=== PATIENT | male | born 1985 | race Caucasian/White ===

== ENCOUNTER 2018-07-10 13:41 | Emergency (ER) | payer SELFPAY, OTHER ==
[2018-07-10 14:44] LABS: ADD MAN DIFF? NO
[2018-07-10 14:47] LABS: BASO % 0 % (0-3); EOS # 0.1 x10^3/uL (0.0-0.7); EOS % 1 % (0-3); HEMATOCRIT 41.4 % (39.0-53.0); HEMOGLOBIN 14.5 g/dL (13.0-17.5); LYMPH # 0.9 x10^3/uL (1.0-4.8); LYMPH % 10 % (24-48); MEAN CORPUSCULAR HEMOGLOBIN 33 pg (25-35); MEAN CORPUSCULAR HGB CONC 35 g/dL (31-37); MEAN CORPUSCULAR VOLUME 94 fL (79-100); MONO # 0.8 x10^3/uL (0.0-1.1); MONO % 8 % (0-9); NEUT # 7.9 x10^3uL (1.8-7.7); NEUT % 81 % (31-73); PLATELET COUNT 246 x10^3/uL (140-400); RED BLOOD COUNT 4.38 x10^6/uL (4.30-5.70); RED CELL DISTRIBUTION WIDTH 12.6 % (11.5-14.5); WHITE BLOOD COUNT 9.7 x10^3/uL (4.0-11.0)
[2018-07-10 15:03] LABS: ANION GAP 8 (6-14); BLOOD UREA NITROGEN 10 mg/dL (8-26); CALCIUM 9.2 mg/dL (8.5-10.1); CARBON DIOXIDE 26 mmol/L (21-32); CHLORIDE 103 mmol/L (98-107); CREATININE 0.9 mg/dL (0.7-1.3); GFR 97.8; GLUCOSE 84 mg/dL (70-99); SODIUM 137 mmol/L (136-145)
[2018-07-10] MEDS: IPRATRPIUM/ALBUTEROL 0.5/2.5MG 3 ML NEBU. NEB (15:07)
[2018-07-10] MEDS: predniSONE 10 MG TABLET PO (15:09)
[2018-07-10 15:14] LABS: TROPONINI < 0.017 ng/mL (0.000-0.055)
[2018-07-10 15:47] LABS: D-DIMER < 0.27 ug/mlFEU (0.00-0.50)
== END 2018-07-10 16:42 | disposition home or self-care (01) ==
LOC: ER 16:42
DX: R07.89 Other chest pain (principal); R05 Cough; B34.9 Viral infection, unspecified; Z88.2 Allergy status to sulfonamides
CPT/HCPCS: 36415; 71046; 80048; 84484; 85025; 85379; 93005; 94640; 99285-25; J7512; J7620

== ENCOUNTER 2020-08-08 10:52 | Emergency (ER) | payer SELFPAY ==
[~2020-08-08] VITALS: Ht 185.4 cm; Wt 70.0 kg
[~2020-08-08 10:52] MED LIST: PRED20TA PO
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
[2020-08-08] MEDS ORDERED: NAPR-514 PO (13:20)
[2020-08-08] MEDS ORDERED: CYCL10TA2 PO (13:20)
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
[2020-08-08 14:00] VITALS: BP 139/87
== END 2020-08-08 14:07 | disposition home or self-care (01) ==
LOC: ER 10:52
DX: S80.01XA Contusion of right knee, initial encounter (principal); S40.012A Contusion of left shoulder, initial encounter; S70.12XA Contusion of left thigh, initial encounter; S00.12XA Contusion of left eyelid and periocular area, initial encounter; R07.81 Pleurodynia; Z88.2 Allergy status to sulfonamides; V86.56XA Driver of dirt bike or motor/cross bike injured in nontraffic accident, initial encounter; Y92.488 Other paved roadways as the place of occurrence of the external cause; Y93.89 Activity, other specified; Y99.8 Other external cause status
CPT/HCPCS: 71101; 73562; 99284